=== PATIENT | female | born 1950 | race African-American/Black ===

== ENCOUNTER 2017-04-11 13:44 | Outpatient (CLI) | payer MEDICARE ==
--- NOTE | 2017-04-11 14:59 | Mammography Report ---
Bilateral digital screening mammogram with CAD. Comparison study is November 05, 2014. History: Breast cancer survivor status post left partial mastectomy and radiation therapy. Findings: The right breast is fatty replaced and demonstrates no focal findings or interval changes. Postsurgical and postradiation changes in the left breast with diminished volume and typical postsurgical fibrosis is stable. No new areas of distortion are seen and no suspicious microcalcifications are present. Impression: Stable benign findings. BI-RADS code: 2. Recommendation: Annual screening.
== END 2017-04-11 13:45 | disposition home or self-care (01) ==
LOC: MAMMO 13:44
PROVIDERS: ATTEND Internal Medicine
DX: Z12.31 Encounter for screening mammogram for malignant neoplasm of breast (principal); Z85.3 Personal history of malignant neoplasm of breast; Z90.12 Acquired absence of left breast and nipple
CPT/HCPCS: 77067; G0202